=== PATIENT | male | born 1990 | race Caucasian/White ===

== ENCOUNTER 2022-11-26 11:37 | Emergency (ER) | payer OTHER ==
[~2022-11-26] VITALS: Ht 170.2 cm; Wt 70.5 kg
[2022-11-26] MEDS ORDERED: OxyCODONE HCL/ACETAMINOPHEN 5-325 MG TABLET PO ONE (12:30)
[2022-11-26] MEDS ORDERED: CefTRIAXone SODIUM 1 GM/VIAL IM ONE (14:15)
[2022-11-26] MEDS ORDERED: LIDOCAINE/PF 1% 2 ML VIAL IM ONE (14:15)
[2022-11-26] MEDS ORDERED: DOXYCYCLINE HYCLATE 100 MG TABLET PO ONE (14:15)
[2022-11-26 15:09] LABS: APPEARANCE,URINE CLEAR (CLEAR); BILIRUBIN,URINE NEGATIVE (NEGATIVE); GLUCOSE, URINE (UA) NEGATIVE (NEGATIVE); KETONES,URINE NEGATIVE (NEGATIVE); LEUKOCYTE ESTERASE ,URINE NEGATIVE (NEGATIVE); NITRATE,URINE NEGATIVE (NEGATIVE); OCCULT BLOOD,URINE NEGATIVE (NEGATIVE); PROTEIN,URINE NEGATIVE (NEGATIVE); SPECIFIC GRAVITIY, URINE 1.014 (1.003-1.030); UROBILINOGEN,URINE <=1.0 mg/dL (<=1.0)
[2022-11-26 15:50] VITALS: BP 120/72
[2022-11-26] MEDS ORDERED: TRAM-559 PO (15:51)
[2022-11-26] MEDS ORDERED: DOXY-354 PO (15:51)
== END 2022-11-26 16:19 | disposition home or self-care (01) ==
LOC: EMS 11:50
DX: N45.1 Epididymitis (principal); F17.210 Nicotine dependence, cigarettes, uncomplicated; F15.90 Other stimulant use, unspecified, uncomplicated
CPT/HCPCS: 99284; 81003; 76870; 87491; 87591; 96372; J0696; J3490

== ENCOUNTER 2023-05-01 05:29 | Emergency (ER) | payer OTHER ==
[~2023-05-01] VITALS: Ht 170.2 cm; Wt 70.5 kg
[~2023-05-01 05:29] MED LIST: DOXY-354 PO; TRAM-559 PO
[2023-05-01 05:41] VITALS: TEMP 98.5
[2023-05-01] MEDS ORDERED: CEPH-558 PO (06:54)
[2023-05-01] MEDS ORDERED: IBUP-1554 PO (06:54)
[2023-05-01] MEDS ORDERED: CIPR7.5D AS (06:54)
[2023-05-01] MEDS ORDERED: HYDR-4072 PO (06:54)
[2023-05-01 07:08] VITALS: BP 118/76; PULSE 72; RESP 16
== END 2023-05-01 07:10 | disposition home or self-care (01) ==
LOC: EMS 05:38
DX: H66.92 Otitis media, unspecified, left ear (principal); H60.92 Unspecified otitis externa, left ear; F17.210 Nicotine dependence, cigarettes, uncomplicated; Z98.890 Other specified postprocedural states
CPT/HCPCS: 99283; Z7502